=== PATIENT | male | born 1970 | race Caucasian/White ===

== ENCOUNTER → 2017-12-15 | Outpatient (CLI) | payer BC | LOC: COL.VAS 08:40 | DX: I51.7 Cardiomegaly (principal); R94.31 Abnormal electrocardiogram [ECG] [EKG]; I10 Essential (primary) hypertension ==

== ENCOUNTER 2019-03-01 07:34 | Day surgery (SDC) | payer OTHER ==
[~2019-03-01] VITALS: Ht 193 cm; Wt 110.0 kg
[2019-03-01] VITALS (10 sets, daily range): BP systolic 117–147; BP diastolic 75–97; PULSE 54–64; TEMP 97–97.9
[2019-03-01] MEDS ORDERED: NITROSTAT0.4 MG/TAB SL (08:05)
[2019-03-01] MEDS ORDERED: NORVASC 10MG10 MG PO (08:06)
[2019-03-01] MEDS ORDERED: EDARB4012.5TAB PO (08:08)
[2019-03-01] MEDS ORDERED: ASPIRIN E.C. 8181 MG PO (08:09)
[2019-03-01 08:11] LABS: HEMATOCRIT 38.3 % (42.0-52.0); HEMOGLOBIN 13.4 g/dl (13.5-18.0); MEAN CELL VOLUME 89 fl (80.0-100.0); MEAN CORPUSCULAR HEMOGLOBIN 31 pg (27.0-31.0); MEAN CORPUSCULAR HGB CONC 35 g/dl (33.0-37.0); MEAN PLATELET VOLUME 9.1 fl (7.4-10.4); PLATELET COUNT 226 K/mm3 (130-400); PROTHROMBIN TIME 11.9 SECONDS (9.7-12.8); RED BLOOD COUNT 4.32 M/mm3 (4.20-5.60); REDCELL DISTRIBUTION WIDTH-CV 12.9 % (11.5-14.5)
[2019-03-01 08:15] LABS: CALCIUM 9.4 mg/dL (8.4-10.2); CREATININE, serum 1.19 (0.66-1.25); POTASSIUM 3.9 mmol/L (3.4-5.0)
--- NOTE | 2019-03-01 09:34 | NUR ---
SEE MERGE REPORT FOR MEDICATION ADMINISTRATION TIMES WELL INTRA/POST SEDATION ASSESSMENTS. PTS HEIGHT REVIEWED WITH MD AND WILL PROCEED WITH RADIAL FIRST. +BARBEAU TEST TO RIGHT RADIAL ARTERY.
[2019-03-01] MEDS ORDERED: LIPITOR 40MG TA40 MG PO (10:20)
--- NOTE | 2019-03-01 10:20 | NUR ---
Pt returned to [facility] 11 per bed s/p heart cath. Pt resting well, family at bedside.
--- NOTE | 2019-03-01 12:50 | NUR ---
Pt has ambulated, voided and leana PO intake s n/v. R radial compression band removed. R radial cath site remains soft, C/D/I. Site covered with bandaid and gauze and wrapped with coban. Pt leana well.
--- NOTE | 2019-03-01 13:15 | NUR ---
Pt discharged per w/c by nurse with .
== END 2019-03-01 13:58 | disposition home or self-care (01) ==
LOC: COL.CAR 07:34
PROVIDERS: Internal Medicine Cardiovascular Disease
DX: I25.10 Atherosclerotic heart disease of native coronary artery without angina pectoris (principal); I10 Essential (primary) hypertension; R94.31 Abnormal electrocardiogram [ECG] [EKG]; Z79.82 Long term (current) use of aspirin; Z87.891 Personal history of nicotine dependence; Z82.49 Family history of ischemic heart disease and other diseases of the circulatory system; Z80.51 Family history of malignant neoplasm of kidney
CPT/HCPCS: J1644; J2250; J3010; Q9967